=== PATIENT | male | born 1955 | race Caucasian/White ===

== ENCOUNTER → 2023-05-28 17:15 | Outpatient (REF) | payer MEDICARE, SELFPAY | LOC: HWRAD 17:15 | PROVIDERS: ATTENDING PHYSICIAN Physician Assistant Medical | DX: R05.3 Chronic cough (principal) | CPT/HCPCS: 71046 ==

== ENCOUNTER → 2023-07-26 07:35 | Outpatient (REF) | payer MEDICARE, SELFPAY | LOC: RSP 07:35 | PROVIDERS: ATTENDING PHYSICIAN Physician Assistant Medical | DX: R05.3 Chronic cough (principal) | CPT/HCPCS: 94727; 94729; 88738; 94010 ==

== ENCOUNTER → 2023-11-21 06:36 | Day surgery (SDC) | payer MEDICARE, SELFPAY | LOC: GI 06:36 | PROVIDERS: ATTENDING PHYSICIAN Internal Medicine Gastroenterology | DX: D50.9 Iron deficiency anemia, unspecified (principal); K64.8 Other hemorrhoids; K29.70 Gastritis, unspecified, without bleeding; K22.2 Esophageal obstruction; K44.9 Diaphragmatic hernia without obstruction or gangrene; K31.89 Other diseases of stomach and duodenum | CPT/HCPCS: 45378; 70220; 88305; 88342 ==

== ENCOUNTER 2024-02-17 09:59 | Inpatient (IN) | payer MEDICARE, SELFPAY ==
[2024-02-17] VITALS (18 sets, daily range): BP systolic 95–170; BP diastolic 60–137; BMI 30.6
[2024-02-17 08:25] LABS: % Basophils 0.9 % (0-2); % Eosinophils 1.6 % (0-6); % Immature Granulocytes 0.4 % (0-0.5); % Lymphocytes 12.2 % (20.5-51.1); % Monocytes 8.9 % (1.7-9.3); Absolute Basophils 0.1 10^3/uL (0-0.2); Absolute Eosinophils 0.2 10^3/uL (0-0.7); Absolute Lymphocytes 1.3 10^3/uL (1.2-3.4); Absolute Neutrophils 8.3 10^3/uL (1.4-6.5); Hematocrit 47.9 % (39.0-52.0); Mean Corp Hgb Conc. 35.5 g/dL (33.0-37.0); Mean Corpuscular Hgb 30.6 pg (27.0-31.0); Mean Corpuscular Volume 86.3 fL (80.0-94.0); Mean Platelet Volume 9.3 fL (7.4-10.4); Nucleated Red Blood Cells % 0 % (-); Platelet Count 245 10^3/uL (130-400); Red Blood Cell Count 5.55 10^6/uL (4.70-6.10); White Blood Cell Count 10.9 10^3/uL (4.8-10.8)
[2024-02-17] MEDS: CARDIZEM 10 MG IV (08:34)
--- NOTE | 2024-02-17 08:34 | ED.GENMED ---
History of Present Illness
General
Chief Complaint: Chest Pain
Source: patient
Exam Limitations: none
Time Seen by Provider: 02/17/24 08:16
Nursing documentation reviewed up to this point in time: agreed with
History of Present Illness
History of Present Illness:
68-year-old male presents emerged from complaining of right arm pain mild chest discomfort. He woke up with sweats.
Past History
Past History
ED Past Medical History: Hypercholesterolemia
ED Past Surgical History: Cholecystectomy
Patient has exhibited threatening behavior?: No
PSI?: No
Social History
Personal:
Living: with family
Employment: Employed
Review of Systems
Review of Systems
Allergies reviewed?: Yes
All Other Systems: Not applicable
Constitutional: Reports no symptoms
EENT: Reports no symptoms
Respiratory: Reports no symptoms
Cardiac: Reports chest pain and palpitations
ABD/GI: Reports no symptoms
: Reports no symptoms
Musculoskeletal: Reports no symptoms
Skin: Reports no symptoms
Neurological: Reports no symptoms
Endocrine: Reports no symptoms
Hematologic/Lymphatic: Reports no symptoms
Psychiatric: Reports no symptoms
Phy Exam
Physical Exam
Physical Exam:
Physical Exam
General: no apparent distress, not acutely ill
Neck: supple. no meningeal signs. normal posterior pharynx
Heart: s1/s2 tachycardia, no murmur. equal radial
pulses.
HEENT: Pupils equal round reactive to light, EOMI
Lungs: no acute respiratory distress. clear bilaterally
Abdomen: normal bowel sounds. not tender. no CVAT
Neuro: alert and oriented. no focal neurological deficits cranial nerves II through XII intact
Skin: no rash
Psychiatric: well kept. interactive and cooperative
Extremities: no edema. no calf tenderness. negative homans. good distal pulses
Scores
Heart Score for Chest Pain Patients
STEMI patient?: No
History: Slightly or Non-Suspicious
ECG: Nonspecific Repolarization
Age: >/= 65 years
Risk Factors: 1 or 2 Risk Factors
Troponin: >1 - <3 x Normal Limit
Heart Score for Chest Pain Patients: 5
Heart Score Risk: 20.3% MACE over next 6 weeks
Course
Orders/Labs/Results
Orders:
Orders
02/17/24 07:58
EKG [Electrocardiogram (*1)] Urgent
Reason for Study: Chest Pain
EKG- Treatment ONCE
02/17/24 08:16
CMP [Comprehensive Metabolic Panel] Urgent
Complete Blood Count/With Diff Urgent
PT/INR [Prothrombin Time] Urgent
PTT Urgent
Troponin I Urgent
02/17/24 08:28
Diltiazem 125 mg/125 ml Nss [Cardizem] 125 mg in 125 ml .ROUTE .STK-MED
Diltiazem HCl [Cardizem] 25 mg .ROUTE .STK-MED ONE
02/17/24 08:32
Diltiazem HCl [Cardizem] 10 mg IV NOW STA
02/17/24 08:45
Diltiazem 125 mg/125 ml Nss [Cardizem] 125 mg in 125 ml IV PER PROTOCOL
Initial dose in mg/hr, then titrate:: 5
Titrate to keep:: Heart rate 80-100 bpm
Titrate by mg/hr:: 5 mg/hr
Frequency of titrations (minutes):: 15
Maximum dose in mg/hr:: 15
02/17/24 09:13
0.9% Sodium Chloride 1000 ml [Nss] 1,000 ml IV BOLUS
02/17/24 09:27
Heparin 4,000 units IV NOW STA
Nursing to Place Non Medication Order As Directed
Physician Order: PTT 6 hours after initial start of Heparin infusion
Above order entered?: Yes
02/17/24 09:32
Admit/Transfer Patient As Directed
Co-Sign Provider:
Level of Care: Inpatient admission
Assign to:: IVU
Physician / Group: Dr Garcia
Diagnosis: A-fib RVR
Reason for Hospitalization: Patient is 68 years old male presented with chest pain and A-fib RVR
Expected length of stay greater than two midnights?: Yes
ELOS- Estimated Length of Stay in days: 2
I certify the patient meets the requirements for IP care: Yes
02/17/24 09:35
PRN Pain Medication Management As Directed
May give lesser potent ordered pain med per pt: Yes
preference::
Protocol:: Medication orders for pain may be administered in a
manner that supports deferring to patient preference
when the pt is:
- Requesting an ordered lesser potent pain medication.
Least to most potent pain medications are defined
as: acetaminophen < NSAID < tramadol < opioids
(morphine, oxycodone, hydromorphone).
- Requesting a lesser dose of the same medication IF
ORDERED.
- Requesting a less intrusive route of administration
if both routes are prescribed by the provider (PO <
IV).
02/17/24 09:36
Code Status As Directed
Resuscitation Status: Full Code
02/17/24 09:45
Heparin 33551 Units/250 ml 25,000 units in 250 ml IV PER PROTOCOL
Weight to be used for heparin protocol in kilograms (kg):: 114
Protocol:: Cardiac Tx/Acute Coronary
PTT Goal Range to be used:: PTT 73 to 111 seconds
Order type:: Initial
INITIAL Infusion Dose (UNITS/KG/hr) & then follow protocol:: 12 units/kg/hr
Infusion Dose in UNITS/hr & then follow protocol (UNITS/hr):: 1,000
INFUSION RATE in mL/hr & then follow protocol (mL/hr):: 10
PTT less than or equal to 64 seconds:: Increase rate by 200 units/hr (+ 2 mL/hr)
PTT 64.1 to 72.9 seconds:: Increase rate by 100 units/hr (+ 1 mL/hr)
PTT 73 to 111 seconds:: Target Range. No change in rate.
PTT 111.1 to 130.9 seconds:: Decrease rate by 100 units/hr (- 1 mL/hr)
PTT 131 to 199.9 seconds:: HOLD for 1 hr. Then decrease rate by 200 units/hr (- 2 mL/hr)
PTT greater than or equal to 200 seconds:: HOLD for 2 hrs & Notify Provider. Then decrease by 200 units/hr (-
2 mL/hr)
Lab follow-up:: Each change, PTT q6h until 2 consecutive are therapeutic. Then PTT
daily.
02/17/24 11:40
Bisacodyl [Dulcolax] 10 mg RECTAL [id number] PRN
Docusate W/Senna [Senokot-S] 1 tablet PO BIDPRN PRN
Polyethylene Glycol Powder [Miralax] 17 grams PO DAILYPRN PRN
02/17/24 11:40
Heparin Protocol- PTT Orders As Directed
PTT per Heparin protocol: -Obtain CBC and baseline PTT - if not already collected.
-Obtain PTT 6 hours from start of infusion. Then, every 6 hours until 2 consecutive
PTT's are therapeutic. Then, PTT Daily.
-With each rate change, obtain PTT every 6 hours until 2 consecutive PTT's are
therapeutic. Then, PTT Daily.
Activity As Directed
Activity Level: Out of Bed-Early Mobility
Notify MD As Directed
Notify physician if: PTT is greater than or equal to 200.
Vital Signs As Directed
Frequency: Per unit guidelines
02/17/24 14:00
Troponin I Q6H
02/17/24 20:00
Troponin I Q6H
02/18/24 06:00
Basic Metabolic Panel IN AM
Complete Blood Count/No Diff IN AM
Magnesium IN AM
TSH Reflex To Free T4 IN AM
02/19/24 06:00
Complete Blood Count/No Diff Q2D
Comment: notify provider: Platelet count < 130,000 or decrease by 50% from baseline
02/21/24 06:00
Complete Blood Count/No Diff Q2D
Comment: notify provider: Platelet count < 130,000 or decrease by 50% from baseline
02/23/24 06:00
Complete Blood Count/No Diff Q2D
Comment: notify provider: Platelet count < 130,000 or decrease by 50% from baseline
02/25/24 06:00
Complete Blood Count/No Diff Q2D
Comment: notify provider: Platelet count < 130,000 or decrease by 50% from baseline
02/27/24 06:00
Complete Blood Count/No Diff Q2D
Comment: notify provider: Platelet count < 130,000 or decrease by 50% from baseline
02/29/24 06:00
Complete Blood Count/No Diff Q2D
Comment: notify provider: Platelet count < 130,000 or decrease by 50% from baseline
03/02/24 06:00
Complete Blood Count/No Diff Q2D
Comment: notify provider: Platelet count < 130,000 or decrease by 50% from baseline
03/04/24 06:00
Complete Blood Count/No Diff Q2D
Comment: notify provider: Platelet count < 130,000 or decrease by 50% from baseline
Abnormal Lab Results
02/17/24
08:16
WBC 10.9 H 10^3/uL
(4.8-10.8)
Absolute Neuts (auto) 8.3 H 10^3/uL
(1.4-6.5)
Absolute Monos (auto) 1.0 H 10^3/uL
(0.1-0.6)
Neutrophils % 76.0 H %
(42.2-75.2)
Lymphocytes % 12.2 L %
(20.5-51.1)
Glucose 121 H mg/dl
(70-99)
02/17/24 08:16
02/17/24 08:16
Vital Signs
Initial and Last Documented VS:
Initial Vital Signs
Temp Pulse Resp Pulse Ox
97.5 F 68 16 98
02/17/24 07:57 02/17/24 07:57 02/17/24 07:57 02/17/24 07:57
Last Documented Vital Signs
Temp Pulse Resp BP Pulse Ox
97.8 F 140 16 130/106 96
02/17/24 12:25 02/17/24 12:25 02/17/24 12:25 02/17/24 11:38 02/17/24 12:30
MDM/Problems Addressed
Differential Diagnosis Includes:
ACS, rapid atrial fibrillation
MDM/Problems Addressed:
68-year-old male with rapid atrial fibrillation, new onset. Unclear onset. Mild improvement with IV diltiazem. Admit to hospitalist. Patient will likely require ELIZABETH and cardioversion. IV heparin started.
Chronic conditions affecting care: HTN
Acute Exacerbation and/or Progression of Chronic Illness: HTN
*Pulse Oximetry
Patient hypoxic: no
*EKG
Interpreted by ED Provider?: Yes
EKG Intrepretation Date: 02/17/24
EKG Intrepretation Time: 08:01
Interpretation: abnormal
Comparison EKG: changes noted
Heart Rate: 183
Rate: tachycardiac
Rhythm: a-fib
[place]: normal axis
Interval: normal interval
QRS Pattern: right bundle branch block
Ischemia: no ischemia
*[place] Interpretation
Rate: tachycardiac
Interpretation: abnormal
Heart Rate: 180
Rhythm: a-fib
*Critical Care Note
Total Time (30-74mins, 75-104mins- exclusive of procedures): 30
comment:
Critical care statement: A total of 30 minutes of critical care time was provided for this patient. This includes management of unstable vital signs, evaluation of the patient at bedside, reviewing the patient's pertinent medical records, discussion
with consultants, review of old EKGs and review of pertinent medical records. This time with separate from time utilized to perform the aforementioned documented procedures
Patient Management
Social determinants of health affecting care: Living situation
Discussion with other providers: Hospitalist
Escalation/DeEscalation of care consider admission/obs:
Admit indicated
ED Attending Note
-
Portions of this chart may have been created with voice recognition software.� Occasional wrong word or��sound alike� substitutions may have occurred due to the inherent limitations of voice recognition software.
Discharge Plan
Departure
Patient Disposition: Admit
Date of Disposition: 02/17/24
Time of Disposition: 09:16
Admit to: IVU
Presentation/result/management discussed w/ accepting MD/DO: Hospitalist
Patient with high blood pressure during this ER visit?: Yes
Condition: Fair
Discharge Problem:
Atrial fibrillation with rapid ventricular response
Interventions
Interventions:
*Risk Screen - Suicide Last Done: 02/17/24 12:03
*General Assessment Last Done: 02/17/24 07:57
*Neglect/Abuse Screening Last Done: 02/17/24 07:57
ED- Fall Risk Assessment Last Done: 02/17/24 08:05
*ED COVID-19 Vaccine History Last Done: 02/17/24 11:55
*Nursing Disposition Last Done: 02/17/24 11:44
ED- Cardiac Assessment Last Done: 02/17/24 08:05
Discharge Date and Time
Discharge Date/Time: 02/17/24 11:44
[2024-02-17 08:35] LABS: INR 1.05; PT 13.5 Sec (11.4-14.6)
[2024-02-17] MEDS: CARDIZEM 125 IV ×2 (08:35→16:32)
[2024-02-17 08:36] LABS: APTT 31.6 Sec (23.4-35.0)
[2024-02-17 08:39] LABS: ALT (SGPT) 25 U/L (0-50); AST (SGOT) 26 U/L (17-59); Albumin 4.6 g/dl (3.5-5.0); Alkaline Phosphatase 90 U/L (38-126); Blood Urea Nitrogen 18 mg/dl (9-20); Carbon Dioxide 26 mmol/L (22-30); Chloride 103 mmol/L (98-107); Estimated Creatinine Clearance 95 ml/min; Glucose 121 mg/dl (70-99); Potassium 4.2 mmol/L (3.5-5.1); Sodium 142 mmol/L (135-145); Total Bilirubin 0.8 mg/dl (0.2-1.3); Total Protein 7.7 g/dl (6.3-8.2); eGFR > 60.00
[2024-02-17 08:52] LABS: Troponin I 0.033 ng/ml
[2024-02-17] MEDS: NSS 1000 IV (09:17)
[2024-02-17] MEDS: HEPARIN 4000 UNITS IV (09:34)
--- NOTE | 2024-02-17 09:38 | HPS.HSE ---
Family Physician
-
Family Physician: Pardeep Arellano
Chief Complaint
-
Chest pain
History of Present Illness
Patient 68 years old male history of hypertension, hyperlipidemia, presented to the hospital with chest pain and found to be in new onset atrial fibrillation rapid ventricular response. Patient woke up this around 5 AM and felt that he had some
chest discomfort associated radiated to his right arm, mild to moderate intensity, associated with some dizziness. Denies palpitation shortness of breath or syncope. Symptoms persisted throughout the morning and decided to come to the hospital for
further evaluation. Denies any fevers or chills. Denies any nausea vomiting or diarrhea recently. In the ED he was found to be in A-fib in the 160s and he was started on Cardizem drip and heparin drip and by the time of my evaluation he is still
persisted in A-fib in the 150s and blood pressure borderline low 98/70. He is chest pain-free by the time of my evaluation. He does have some abnormal EKG with A-fib and ST depressions. His troponin is normal first set. He was referred to
hospital service for evaluation.
Medical History
Past Medical History
Past Medical History: Reports Other (Hypertension, hyperlipidemia)
Past Surgical History: Reports None
Social History
Tobacco: Non-smoker
Alcohol: None
Drug: None
Family History
Family History: Not pertinent
Allergies / Home Medications
Allergies reflects when Allergies were last updated in [facility].
Home Medications with original date entered in [facility]
Allergy/Medication List:
Allergies
Allergy/AdvReac Type Severity Reaction Status Date / Time
Penicillins Allergy Hives Verified 02/17/24 07:56
Home Medications
atorvastatin 20 mg tablet 20 mg PO DAILY 05/06/19
multivitamin with folic acid 400 mcg tablet (Tab-A-Mey) 1 tab PO DAILY 05/06/19
Review of Systems
-
A 12 point ROS was completed and negative except as noted: Yes
Physical Exam
Vital Signs
Vital Signs
Temp Pulse Resp BP Pulse Ox
97.5 F 137 14 113/83 96
02/17/24 07:57 02/17/24 09:15 02/17/24 09:15 02/17/24 09:15 02/17/24 09:15
Physical exam:
General: Acutely ill
HEENT: Normocephalic, Atraumatic and Moist Mucous Membranes
Respiratory: Clear to Auscultation; Negative Wheezes, Rales or Rhonchi
Cardiac: Irregular rate and rhythm, tachycardic, and S1/S2
GI: Soft, Nontender and Nondistended
Musculoskeletal: No Clubbing, No Cyanosis and No Edema
Neuro: Awake, Alert and Oriented
Psych: Calm
Physical Exam
General: Other
Laboratory Results
-
02/17/24 08:16
02/17/24 08:16
Laboratory Results
PT 13.5 Sec (11.4-14.6) 02/17/24 08:16
INR 1.05 02/17/24 08:16
APTT 31.6 Sec (23.4-35.0) 02/17/24 08:16
Total Bilirubin 0.8 mg/dl (0.2-1.3) 02/17/24 08:16
AST 26 U/L (17-59) 02/17/24 08:16
ALT 25 U/L (0-50) 02/17/24 08:16
Alkaline Phosphatase 90 U/L (38-126) 02/17/24 08:16
Troponin I 0.033 ng/ml 02/17/24 08:16
Data Reviewed
-
Lab Data: Labs Reviewed by me
Impression/Plan
-
IMPRESSION:
Patient is 68 years old male with history of hyperlipidemia and iron deficiency anemia came into the hospital with chest pain and found to be an A-fib rapid ventricular response, new onset. Patient at risk of increased morbidity mortality due to
unstable cardiac arrhythmia thereby will need to be admitted to the hospital and monitor for progress and management.
PLAN:
Atrial fibrillation with rapid ventricular response, new onset:
Continue rate control agents, currently on IV Cardizem drip
Continue anticoagulation, currently on heparin drip
Check TSH
Obtain echocardiogram
Cardiology consult-discussed with cardiology via [place] text today-likely cardioversion tomorrow
Continue cardiac monitoring
Chest pain:
Likely related to above but need to rule out ischemic heart disease
There is ST depressions in lateral precordial leads V2 to V4 but unclear if tachycardia mediated or ischemia related
First set of cardiac troponin is normal but will continue to trend
Will also obtain an echocardiogram
Hypertension:
Hold on palma inh while on Cardizem drip and relatively hypotensive
Monitor BP closely
Hyperlipidemia:
Cont Crestor 5 mg QHS
Check fasting lipids in am
DVT prophylaxis:
Heparin drip
CODE STATUS
Full code
Time spent 75 minutes
[2024-02-17] MEDS: HEPARIN 25000 UNITS/250 ML IV (09:42)
--- NOTE | 2024-02-17 12:38 | PTCARENOTE ---
Assumed care of pt from ED, handoff done as per protocol. Pt arrives awake and alert, Ox3. CM shows AF 130-16's, Cardizem inf through right wrist at 15 mg/hr, Heparin infusing along with Cardizem at 1000 u/hr. He denies any pain or discomfort,
family at bedside. Plan for ELIZABEHT, CV tomorrow.
--- NOTE | 2024-02-17 12:41 | W.PN.CD ---
Addendum entered and electronically signed by Enrrique Trejo MD 02/17/24 16:42:
Consult has been dictated. Below is a summary.
Original Note:
Today's Communication / Plan
-
Trend trop
Check TSH
Anticipate early ELIZABETH/DCCV (02/18/2024)
Impression / Plan
-
New AFib RVR
- [id number] 2 (HTN/age1)
- Early ELIZABETH/DCCV
- Start Eliquis
- All aspects of AFib reviewed including: risk factor modification, stroke risk reduction, bleeding risks of OAT/signs sx of bleeding, recurrence, rate/rhythm control approaches, need to evaluate for structural heart disaeaes, and availability of
early or later ablation
Associated right arm pain
- R/o GA
- Anticipate outpatient stress test
HTN
Mixed hyperlipidemia
Physical Exam
Vital Signs/Labs
Vital Signs
Temp Pulse Resp BP Pulse Ox
97.8 F 140 16 130/106 96
02/17/24 12:25 02/17/24 12:25 02/17/24 12:25 02/17/24 11:38 02/17/24 12:30
02/16/24 02/17/24 02/18/24
06:59 06:59 06:59
Actual Weight 114 kg
02/17/24 08:16
02/17/24 08:16
PT 13.5 Sec (11.4-14.6) 02/17/24 08:16
INR 1.05 02/17/24 08:16
APTT 31.6 Sec (23.4-35.0) 02/17/24 08:16
LAB Results
02/17/24
08:16
Troponin I 0.033
Data Reviewed
-
Date of Service: February 17, 2024
[2024-02-17 16:03] LABS: APTT 47.5 Sec (23.4-35.0)
[2024-02-17 17:33] LABS: HDL Cholesterol 44 mg/dl; LDL Cholesterol, Calculated 66 mg/dl; Lipase 70 U/L (23-300); Total Cholesterol 171 mg/dl (50-199); Triglyceride 305 mg/dl (10-149); Very Low Density Lipoprotein 61 mg/dl (0-30)
[2024-02-17] MEDS: LOPRESSOR 25 MG PO (17:50)
[2024-02-17] MEDS: CRESTOR 5 MG PO (17:50)
[2024-02-17 18:17] LABS: TSH Reflex To Free T4 2.36 uIU/ml (0.47-4.68)
[2024-02-17 22:43] LABS: APTT 58.6 Sec (23.4-35.0)
[2024-02-17] MEDS: LOPRESSOR 50 MG PO (23:39)
[2024-02-18] VITALS (16 sets, daily range): BP systolic 108–136; BP diastolic 59–88; BMI 29.9
[2024-02-18] MEDS: CARDIZEM 125 IV (01:17)
--- NOTE | 2024-02-18 02:47 | PTCARENOTE ---
Rec'd pt at change of shift. Pt on TELE monitor in AFIB with HR in the 90-100's, VSS, and AAO*3. Pt with Cardizem infusing at 15mg/hr. Pt kept NPO after midnight for possible cardioversion and ELIZABETH in the morning. Pt oriented to room and
ambulates without any assistance. Pt denies any pain or discomfort. Pt resting with call hagan in reach. Plan of care ongoing.
[2024-02-18 05:24] LABS: Hematocrit 41.7 % (39.0-52.0); Hemoglobin 15.1 g/dL (13.0-18.0); Mean Corp Hgb Conc. 36.2 g/dL (33.0-37.0); Mean Corpuscular Hgb 31.2 pg (27.0-31.0); Mean Corpuscular Volume 86.2 fL (80.0-94.0); Mean Platelet Volume 9.7 fL (7.4-10.4); Platelet Count 220 10^3/uL (130-400); Red Blood Cell Count 4.84 10^6/uL (4.70-6.10); Red Cell Dist. Width 13.5 % (11.5-14.5); White Blood Cell Count 10.2 10^3/uL (4.8-10.8)
[2024-02-18 05:36] LABS: APTT 83.1 Sec (23.4-35.0)
[2024-02-18 05:53] LABS: Blood Urea Nitrogen 22 mg/dl (9-20); Calcium 9.4 mg/dl (8.4-10.2); Carbon Dioxide 19 mmol/L (22-30); Chloride 109 mmol/L (98-107); Estimated Creatinine Clearance 95 ml/min; Glucose 111 mg/dl (70-99); HDL Cholesterol 43 mg/dl; LDL Cholesterol, Calculated 57 mg/dl; Magnesium 2.2 mg/dl (1.6-2.3); Potassium 4.3 mmol/L (3.5-5.1); Sodium 139 mmol/L (135-145); Total Cholesterol 125 mg/dl (50-199); Triglyceride 126 mg/dl (10-149); Very Low Density Lipoprotein 25 mg/dl (0-30); eGFR > 60.00
[2024-02-18] MEDS: HEPARIN 25000 UNITS/250 ML IV (06:14)
[2024-02-18] MEDS: LOPRESSOR 50 MG PO ×4 (06:14→23:16)
--- NOTE | 2024-02-18 07:17 | W.PN.HOSP.TC ---
Today's Communication/Plan
-
c/w heparin and Cardizem
R/O ischemic heart disease, f/w cardiology recommendations
Add aspirin
f/w Echo
Assessment / Plan
Assessment / Plan
Physical exam:
General: Not in distress, looks comfortable
HEENT: Normocephalic, Atraumatic and Moist Mucous Membranes
Respiratory: Clear to Auscultation; Negative Wheezes, Rales or Rhonchi
Cardiac: Irregular rate and rhythm, less tachycardic, and S1/S2
GI: Soft, Nontender and Nondistended
Musculoskeletal: No Clubbing, No Cyanosis and No Edema
Neuro: Awake, Alert and Oriented, he followed commands appropriately.
Psych: Calm
Patient is 68 years old male with history of hyperlipidemia and iron deficiency anemia came into the hospital with chest pain and found to be an A-fib rapid ventricular response, new onset. Patient at risk of increased morbidity mortality due to
unstable cardiac arrhythmia thereby will need to be admitted to the hospital and monitor for progress and management.
PLAN:
# Newly diagnosed Atrial fibrillation with rapid ventricular response:
HR around 100-110 this morning, denies current chest pain or palpitations.
Continue rate control agents, currently on IV Cardizem drip
Continue anticoagulation, currently on heparin drip, [id number] around 2
Normal TSH
Obtain echocardiogram
Appreciate cardiology input
# History of chest pain/ pressure, positive troponin peak at 2.020 then came down to 1.600
Suspect NSTEMI
No chest pain this morning, c/w IV Heparin gtt
Add aspirin
Work up to rule out obstructive coronary artery disease.
EKG ST changes.
F/W echo findings , will follow
# Essential Hypertension:
Hold on palma inh while on Cardizem drip and relatively hypotensive
Monitor BP closely
# Hyperlipidemia:
Cont Crestor 5 mg QHS
Check fasting lipids in am
#DVT prophylaxis:
Heparin drip
CODE STATUS
Full code
Total time spent to see the patient, examine the patient on the floor, review data and lab results, discuss treatment plan with patient and nursing staff around 55 minutes
Anticipated Discharge: 24 - 48 hours
Subjective/Interval History
-
Date of Service: February 18, 2024
Objective Data
-
Labs:
Laboratory Results
02/17/24 02/18/24 02/18/24
22:18 05:11 12:00
WBC 10.2
Hgb 15.1
Hct 41.7
Plt Count 220
APTT 58.6 H 83.1 H Pending
Sodium 139
Potassium 4.3
Chloride 109 H
Carbon Dioxide 19 L
BUN 22 H
Creatinine 1.0
Glucose 111 H
Calcium 9.4
Vital Signs:
Vital Signs
Temp Pulse Resp BP Pulse Ox
98.3 F 105 16 116/59 93
02/18/24 03:00 02/18/24 06:14 02/18/24 03:00 02/18/24 06:14 02/18/24 03:00
I&O
02/17/24 02/18/24 02/19/24
06:59 06:59 06:59
Intake Total 465 / 465
Output Total 850 / 850
Balance -385 / -385
[2024-02-18] MEDS: ASPIRIN ENTERIC COATED 325 MG PO (08:29)
--- NOTE | 2024-02-18 09:49 | W.PN.CD ---
Today's Communication / Plan
-
Cath
- If PCI or need for CABG => delay ELIZABETH/DCCV
- If no CAD or med Rx CAD then => ELIZABETH/DCCV today
Impression / Plan
-
Myocardial infarction
- Trop peak at 2
- First symptom right arm tightness with palps
- This is either Type II DE from rapid AFIb or NSTEMI with secondary AFib RVR => proceed to cath / possible PCI to determine
- Add ASA
New AFib RVR
- [id number] 2 (HTN/age1)
- Early ELIZABETH/DCCV
- TSH normal
- Start Eliquis after coronary status determined
- All aspects of AFib reviewed yesterday: including: risk factor modification, stroke risk reduction, bleeding risks of OAT/signs sx of bleeding, recurrence, rate/rhythm control approaches, need to evaluate for structural heart disease, and
availability of early or later ablation
Associated right arm pain
- R/o [place]
- Anticipate outpatient stress test
HTN
Mixed hyperlipidemia => lipids well controlled on statin
Subjective: Feels well
Physical Exam
Vital Signs/Labs
Vital Signs
Temp Pulse Resp BP Pulse Ox
98.3 F 90 18 112/74 93
02/18/24 08:30 02/18/24 09:00 02/18/24 08:30 02/18/24 08:27 02/18/24 03:00
02/17/24 02/18/24 02/19/24
06:59 06:59 06:59
Actual Weight 111.4 kg
02/18/24 05:11
02/18/24 05:11
PT 13.5 Sec (11.4-14.6) 02/17/24 08:16
INR 1.05 02/17/24 08:16
APTT 83.1 Sec (23.4-35.0) H 02/18/24 05:11
Magnesium 2.2 mg/dl (1.6-2.3) 02/18/24 05:11
Triglycerides 126 mg/dl (10-149) 02/18/24 05:11
LDL Cholesterol, Calc 57 mg/dl 02/18/24 05:11
VLDL Cholesterol, Calc 25 mg/dl (0-30) 02/18/24 05:11
HDL Cholesterol 43 mg/dl 02/18/24 05:11
LAB Results
02/17/24 02/17/24 02/17/24
08:16 15:41 22:18
Troponin I 0.033 0.960 H* D 2.020 H* D
02/18/24
05:11
Troponin I 1.600 H*
Physical Exam
Constitutional: No acute distress
EENT: Anicteric
Cardiovascular: Rhythm & rate is regular and Pedal edema is absent
Respiratory: Respiratory effort normal and Lungs clear to auscul.
GI: Soft and Distention absent
Neuro/Psych: AO x 3
Data Reviewed
-
Date of Service: February 18, 2024
--- NOTE | 2024-02-18 10:24 | ITS.CL.CATH ---
[employer] Manager - Catheterization
Cardiac Catheterization
Procedure Report:
CARDIAC CATHETERIZATION REPORT
Date of Procedure: 02/18/2024
Referring: Enrrique Trejo M.D.
INDICATION: Troponin elevation, possible non-ST elevation myocardial infarction.
PROCEDURE:
1. Left heart catheterization.
2. Coronary angiography.
ACCESS:
6 [place]ron[place] right radial artery.
CATHETERS:
1. 5 [place] JR4.
2. 5 [place] JL 3.5.
HEMODYNAMIC DATA
Weight (kg): 111.1
AO (s/d/x, mmHg): 99/62/78
LV (s/x mmHg): 99/17
LEFT VENTRICULOGRAPHY: Not performed.
CORONARY ANGIOGRAPHY
Dominance: Right.
Left Main: Normal size, bifurcating vessel. There is no coronary artery disease.
LAD: Large size vessel giving rise to 3 diagonals before wrapping around the apex and supplying the apical lateral wall. 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
Ramus: Congenitally absent.
Circumflex: Large size, nondominant vessel giving rise to 3 obtuse marginals. Obtuse marginal 1 and 2 arise from a common origin and supplies the majority of the lateral wall. Obtuse marginal 3 supplies the majority of the inferolateral wall.
There is no coronary artery disease.
RCA: Normal size, dominant vessel. There is a 20% lesion in the mid vessel.
INTERVENTION(S)
None.
Closure Device: Vascular band.
Radiation (mGy): 619.6
DAP (cm2.Gy): 37.2869
Fluoroscopy time (minutes): 2.3
Sedation time (minutes): 31
CONCLUSIONS
1. 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
2. Mildly elevated filling pressures (LVEDP = 17 mmHg at 111.1 kg).
3. Paroxysmal atrial fibrillation, spontaneously converted at the time of cardiac catheterization.
RECOMMENDATIONS:
1. Expectant management after cardiac catheterization via right radial approach.
2. Limited weight bearing on the right wrist for one week.
3. Continue aggressive primary prevention with high-dose, high potency statin.
4. Change antihypertensive medications to ones that will also control rate should he lapsed back into atrial fibrillation.
5. The patient may start apixaban this evening.
Copy to: Enrrique Trejo M.D., Pardeep Arellano D.O.
[place] DO, FACC, FACP
[2024-02-18] MEDS: NSS 1000 IV (11:05)
--- NOTE | 2024-02-18 11:50 | PTCARENOTE ---
Received pt from manager cardiac cath w/ IVF's at [facility]. Right radial site w/ R band intact with 8 ml of air in the band. VSS. Pt converted to NSR in the manager cardiac cath. Pt remains in NSR. Orders noted. Will monitor.
--- NOTE | 2024-02-18 13:39 | CM ---
CM following for DC planning needs.
Met w/ patient and spouse at bedside to complete initial assessment.
Pt. resides with spouse in a private, [facility]. Functionally, patient is indep. at baseline w/ ADLs, mobility without the use of any assisted device.
Pt. has Rx plan thru [facility] [employer] and uses [facility] in [place] for prescription needs.
Anticipate DC to home once stable, no needs.
CM to follow.
--- NOTE | 2024-02-18 13:52 | CM ---
Perry Rodríguez thru patient's insurance, [employer] [phone].
Pt. has an annual deductible of $280 to meet. He has already bet $47.37 and therefore has $232.63 left.
Once this is met, pt. will be responsible for 24% of cost of the medication. Cost of medication ranges from approx. $575-630; therefore cost of medication would likely be $130-150/mo.
TT to HUSSEIN to update.
[2024-02-18] MEDS: CRESTOR 5 MG PO (17:46)
[2024-02-18 19:33] LABS: Hepatitis C Antibody Negative (Negative)
[2024-02-18] MEDS: ELIQUIS 5 MG PO (21:06)
[2024-02-19 04:13] VITALS: BP 144/82
[2024-02-19 04:34] LABS: % Basophils 0.8 % (0-2); % Eosinophils 3.2 % (0-6); % Immature Granulocytes 0.2 % (0-0.5); % Lymphocytes 17.6 % (20.5-51.1); % Neutrophils 68.2 % (42.2-75.2); Absolute Basophils 0.1 10^3/uL (0-0.2); Absolute Eosinophils 0.3 10^3/uL (0-0.7); Absolute Lymphocytes 1.5 10^3/uL (1.2-3.4); Absolute Monocytes 0.9 10^3/uL (0.1-0.6); Absolute Neutrophils 5.8 10^3/uL (1.4-6.5); Hematocrit 41.8 % (39.0-52.0); Hemoglobin 14.8 g/dL (13.0-18.0); Mean Corp Hgb Conc. 35.4 g/dL (33.0-37.0); Mean Corpuscular Hgb 30.9 pg (27.0-31.0); Mean Corpuscular Volume 87.3 fL (80.0-94.0); Mean Platelet Volume 9.8 fL (7.4-10.4); Nucleated Red Blood Cells % 0 % (-); Platelet Count 189 10^3/uL (130-400); Red Blood Cell Count 4.79 10^6/uL (4.70-6.10); Red Cell Dist. Width 13.4 % (11.5-14.5); White Blood Cell Count 8.5 10^3/uL (4.8-10.8)
[2024-02-19 04:59] LABS: Blood Urea Nitrogen 18 mg/dl (9-20); Carbon Dioxide 21 mmol/L (22-30); Chloride 108 mmol/L (98-107); Estimated Creatinine Clearance 94 ml/min; Glucose 94 mg/dl (70-99); Potassium 4.2 mmol/L (3.5-5.1); Sodium 140 mmol/L (135-145); eGFR > 60.00
[2024-02-19] MEDS: LOPRESSOR 50 MG PO (05:31)
--- NOTE | 2024-02-19 06:42 | PTCARENOTE ---
Pt NSR on monitor. VSS. Pt denies any discomfort, pain or SOB. Safety measures in place .
--- NOTE | 2024-02-19 06:59 | W.PN.HOSP.TC ---
Today's Communication/Plan
-
DC planning
Assessment / Plan
Assessment / Plan
Physical exam:
General: Not in distress, looks comfortable
HEENT: Normocephalic, Atraumatic and Moist Mucous Membranes
Respiratory: Clear to Auscultation; Negative Wheezes, Rales or Rhonchi
Cardiac: Irregular rate and rhythm, less tachycardic, and S1/S2
GI: Soft, Nontender and Nondistended
Musculoskeletal: No Clubbing, No Cyanosis and No Edema
Neuro: Awake, Alert and Oriented, he followed commands appropriately.
Psych: Calm
Patient is 68 years old male with history of hyperlipidemia and iron deficiency anemia came into the hospital with chest pain and found to be an A-fib rapid ventricular response, new onset. Patient at risk of increased morbidity mortality due to
unstable cardiac arrhythmia thereby will need to be admitted to the hospital and monitor for progress and management.
PLAN:
# Newly diagnosed Atrial fibrillation with rapid ventricular response:
Converted to SR spontaneously
c/w high dose BB
Continue anticoagulation, s/p heparin drip, now on Eliquis, [id number] around 2
Normal TSH
Echo showed LVEF 55-60%. No wall motion abnormalities, no significant valvular heart disease.
Appreciate cardiology input
# History of chest pain/ pressure, positive troponin peak at 2.020 then came down to 1.600, likely related to tachycardia/ Type II AL
Ruled out NSTEMI
No chest pain
No obstructive coronary artery disease.
Appreciate cardiology input
# Essential Hypertension:
Well controlled.
# Hyperlipidemia:
Cont Crestor 5 mg QHS
#DVT prophylaxis:
Heparin drip
CODE STATUS
Full code
Total discharge time spent to see the patient, examine the patient on the floor, review data and lab results, discuss discharge plan with patient and nursing staff around 69 minutes
Anticipated Discharge: Today
Subjective/Interval History
-
Date of Service: February 19, 2024
No chest pain
No sob
No abd pain
Objective Data
-
Labs:
Laboratory Results
02/19/24
04:21
WBC 8.5
Hgb 14.8
Hct 41.8
Plt Count 189
Sodium 140
Potassium 4.2
Chloride 108 H
Carbon Dioxide 21 L
BUN 18
Creatinine 0.9
Glucose 94
Calcium 9.0
Vital Signs:
Vital Signs
Temp Pulse Resp BP Pulse Ox
97.8 F 72 16 144/82 95
02/19/24 04:12 02/19/24 05:31 02/19/24 04:12 02/19/24 05:31 02/19/24 04:13
I&O
02/17/24 02/18/24 02/19/24
06:59 06:59 06:59
Intake Total 465 / 465 1085 / 1085
Output Total 850 / 850
Balance -385 / -385 1085 / 1085
[2024-02-19 07:36] VITALS: BP 149/96
[2024-02-19] MEDS: LOW STRENGTH ASPIRIN 81 MG PO (08:09)
[2024-02-19] MEDS: ELIQUIS 5 MG PO (08:09)
--- NOTE | 2024-02-19 09:34 | W.PN.CD ---
Today's Communication / Plan
-
OK for home on current meds
Excellent candidate for ablation and he is aware
He will work on aFib risk factor modification
He may need to transition to warfarin or generic Pradaxa ([employer] coupon) for cost reasons
F/u arranged
Impression / Plan
-
Myocardial infarction
- Trop peak at 2
- First symptom right arm tightness with palps
- This was a Type II [place] from rapid AFib
- Add ASA
New Paroxysmal AFib RVR
- Now on metoprolol, will add prn propranolol
- [id number] 2 (HTN/age1)
- Converted spontaneously to sinus shortly after cardiac cath
- TSH normal
- On Eliquis after coronary status determined
- All aspects of AFib reviewed yesterday: including: risk factor modification, stroke risk reduction, bleeding risks of OAT/signs sx of bleeding, recurrence, rate/rhythm control approaches, need to evaluate for structural heart disease, and
availability of early or later ablation
HTN
Mixed hyperlipidemia => lipids well controlled on statin
Subjective: Feels well
Physical Exam
Vital Signs/Labs
Vital Signs
Temp Pulse Resp BP Pulse Ox
98.0 F 61 16 149/96 96
02/19/24 07:36 02/19/24 08:00 02/19/24 07:36 02/19/24 07:36 02/19/24 07:36
02/18/24 02/19/24 02/20/24
06:59 06:59 06:59
Actual Weight 111.4 kg
02/19/24 04:21
02/19/24 04:21
PT 13.5 Sec (11.4-14.6) 02/17/24 08:16
INR 1.05 02/17/24 08:16
APTT Cancelled 02/18/24 12:00
Magnesium 2.2 mg/dl (1.6-2.3) 02/18/24 05:11
Triglycerides 126 mg/dl (10-149) 02/18/24 05:11
LDL Cholesterol, Calc 57 mg/dl 02/18/24 05:11
VLDL Cholesterol, Calc 25 mg/dl (0-30) 02/18/24 05:11
HDL Cholesterol 43 mg/dl 02/18/24 05:11
LAB Results
02/17/24 02/17/24 02/17/24
08:16 15:41 22:18
Troponin I 0.033 0.960 H* D 2.020 H* D
02/18/24
05:11
Troponin I 1.600 H*
Physical Exam
Constitutional: No acute distress
EENT: Anicteric
Cardiovascular: Rhythm & rate is regular and Pedal edema is absent
Respiratory: Respiratory effort normal and Lungs clear to auscul.
GI: Soft and Distention absent
Neuro/Psych: AO x 3
Data Reviewed
-
Date of Service: February 19, 2024
[2024-02-19 11:24] VITALS: BP 150/91
--- NOTE | 2024-02-19 12:55 | PTCARENOTE ---
Assumed care of the pt @ 700. Cath site c/d/i Medication given as ordered see MAR. Rodríguez education pamphlet provided to patient. Discharge instructions provided to pt and verbalized understanding.
--- NOTE | 2024-02-19 14:41 | W.DCSUMMARY ---
Discharge Summary
Discharge Data
Date of Admission: 02/17/24
Date of Discharge: 02/19/24
-
Pending Results: No
Hospital Course
68 years old male presented with chest pain and dizziness. He was found to be in new onset atrial fibrillation rapid ventricular response. He was started on Cardizem drip and heparin drip. He had abnormal EKG with A-fib and ST depressions. His
troponin went slight up to peak at 2.02 then went down to 0.960. Cardiology evaluated the patient, he underwent left heart catheterization that showed 20% lesion in the mid RCA, myocardial bridge in the mid LAD. He spontaneously converted to sinus
rhythm. He was a placed on Eliquis and metoprolol. He tolerated medications well. Echocardiogram showed LVEF 55-60%. Patient was counseled regarding side effects of new medications and he verbalized understanding. He remained in sinus rhythm and
was discharged in a stable condition.
Discharge Plan
-
Patient Disposition: Home (Routine Discharge)
Discharge Diagnosis/Procedures: Type II Myocardial infarction status post Cardiac catheterization
Paroxysmal A fib, started on Toprol and Eliquis
Eliquis is a blood thinner, you were counseled
Diet: As tolerated
Stand Alone Forms: DC Instructions- Cath/EP Lab
Referrals:
Jacey Lim CRNP [Specified Professional Personl] - 03/17/24 9:20 am (Cardiology followup appointment)
Pardeep Arellano DO [Family Provider] -
Prescriptions:
New
metoprolol succinate 100 mg Tablet Extended Release 24 Hr
100 mg PO DAILY Qty: 30 0RF
propranolol 20 mg Tablet
20 mg PO Q6 PRN (Reason: AFib with RVR) Qty: 15 0RF
Eliquis 5 mg Tablet
5 mg PO BID Qty: 60 0RF
Continued
lisinopril 40 mg Tablet
40 mg PO DAILY
rosuvastatin [Crestor] 40 mg Tablet
40 mg PO DAILY
Discharge Orders:
Discharge Patient (As Directed); Ordered 02/19/24
Ordered By: Marge Hart
Care Plan Goals
Care Plan Goals:
Problem: Readiness for enhanced knowledge related to diagnosis and treatment plan
Goal: Understand your diagnosis and treatment plan needs, including medications if applicable.
Instructions: Know your diagnosis, underlying causes and treatment plan options, including medications if applicable. Consult with your health care team to learn about your diagnosis and treatment plan, including medications if applicable.
Discharge Date and Time
Discharge Date/Time: 02/19/24 12:59
Print Language: THAI
== END 2024-02-19 12:59 | disposition home or self-care (01) | DRG 282 ==
LOC: IVU 09:59
PROVIDERS: Internal Medicine Cardiovascular Disease; Nurse Practitioner; ADMITTING PHYSICIAN Hospitalist; ATTENDING PHYSICIAN Internal Medicine; CONSULT PHYSICIAN Internal Medicine Cardiovascular Disease; EMERGENCY PHYSICIAN Emergency Medicine; FAMILY PHYSICIAN Family Medicine
PROC: B2111ZZ Fluoroscopy of Multiple Coronary Arteries using Low Osmolar Contrast (ICD-10-PCS; 2024-02-18)
PROC: 4A023N7 Measurement of Cardiac Sampling and Pressure, Left Heart, Percutaneous Approach (ICD-10-PCS; 2024-02-18)
DX: I21.A1 Myocardial infarction type 2 (principal); I48.0 Paroxysmal atrial fibrillation; I10 Essential (primary) hypertension; E78.2 Mixed hyperlipidemia
CPT/HCPCS: 80048; 80053; 80061; 83690; 83735; 84443; 84484; 85025; 85027; 85610; 85730; 86803; 93005; 93306; 93458; 96361; 96374; 99291; C1894; Q9967

== ENCOUNTER 2024-04-28 23:14 | Emergency (ER) | payer MEDICARE, SELFPAY ==
[2024-04-28 23:43] LABS: % Basophils 0.8 % (0-2); % Eosinophils 2.4 % (0-6); % Immature Granulocytes 0.3 % (0-0.5); % Lymphocytes 20.8 % (20.5-51.1); % Monocytes 11.3 % (1.7-9.3); % Neutrophils 64.4 % (42.2-75.2); Absolute Basophils 0.1 10^3/uL (0-0.2); Absolute Eosinophils 0.2 10^3/uL (0-0.7); Absolute Lymphocytes 1.9 10^3/uL (1.2-3.4); Absolute Neutrophils 5.9 10^3/uL (1.4-6.5); Hematocrit 46.3 % (39.0-52.0); Hemoglobin 16.3 g/dL (13.0-18.0); Mean Corp Hgb Conc. 35.2 g/dL (33.0-37.0); Mean Corpuscular Hgb 31.1 pg (27.0-31.0); Mean Corpuscular Volume 88.4 fL (80.0-94.0); Mean Platelet Volume 9.6 fL (7.4-10.4); Nucleated Red Blood Cells % 0 % (-); Platelet Count 234 10^3/uL (130-400); Red Blood Cell Count 5.24 10^6/uL (4.70-6.10); Red Cell Dist. Width 13.3 % (11.5-14.5); White Blood Cell Count 9.1 10^3/uL (4.8-10.8)
[2024-04-28 23:58] LABS: ALT (SGPT) 22 U/L (0-50); AST (SGOT) 26 U/L (17-59); Albumin 4.3 g/dl (3.5-5.0); Alkaline Phosphatase 101 U/L (38-126); Blood Urea Nitrogen 14 mg/dl (9-20); Calcium 9.3 mg/dl (8.4-10.2); Carbon Dioxide 21 mmol/L (22-30); Chloride 105 mmol/L (98-107); Glucose 109 mg/dl (70-99); Potassium 4.4 mmol/L (3.5-5.1); Sodium 137 mmol/L (135-145); Total Bilirubin 0.5 mg/dl (0.2-1.3); Total Protein 7.2 g/dl (6.3-8.2); eGFR > 60.00
[2024-04-29] VITALS (28 sets, daily range): BP systolic 101–143; BP diastolic 62–94; BMI 30.1
[2024-04-29 00:05] LABS: Troponin I 0.016 ng/ml
[2024-04-29] MEDS: NSS 1000 IV (00:46)
[2024-04-29] MEDS: CARDIZEM 20 MG IV (00:46)
--- NOTE | 2024-04-29 00:55 | ED.GENMED ---
History of Present Illness
General
Chief Complaint: Heart Rate Problem
Time Seen by Provider: 04/29/24 00:23
History of Present Illness
History of Present Illness:
68-year-old male with no history of atrial fibrillation presenting to the emergency department for concern of atrial fibrillation. Patient reports earlier in the evening, felt some palpitations and checked his watch, noted to be in A-fib. Does
note that he was exerting himself a little bit today, shoveling the driveway. Denies any significant chest pain. Last time he was in A-fib was in January, placed on Eliquis and Toprol along. He did have a cardiac catheterization at that time,
without any significant stenosis. Patient went into sinus rhythm on his own. Notes some generalized weakness. Denies any difficulty breathing. Denies fever. Notes compliance with his anticoagulation. Denies additional acute medical complaint
Past History
Past History
ED Past Medical History: Hypercholesterolemia
ED Past Surgical History: Cholecystectomy
Patient has exhibited threatening behavior?: No
PSI?: No
Social History
Personal:
Living: with family
Employment: Employed
Phy Exam
Physical Exam
Physical Exam:
General: Well-appearing, no clinical signs of dehydration, nontoxic and in no acute distress
HEENT: protecting airway
Neck: appears supple
CV: Tachycardia with irregular regular rhythm, no evidence of cyanosis
Resp: No accessory muscle use, no increased work of breathing, lungs clear to auscultation bilaterally
Abd: No distention
Extremities: No deformities, no swelling, no erythema
Neuro: alert, no focal neurologic deficit
: deferred
Rectal: deferred
Psych: Normal affect
Skin: Intact
Course
Orders/Labs/Results
Orders:
Orders
04/28/24 23:14
ECG [Electrocardiogram (*1)] Urgent
Reason for Study: Atrial Fibrillation
04/28/24 23:15
EKG- Treatment ONCE
04/28/24 23:33
Complete Blood Count/With Diff Urgent
Comprehensive Metabolic Panel Urgent
Troponin I Urgent
04/29/24 00:39
Diltiazem HCl [Cardizem] 20 mg IV NOW STA
04/29/24 00:40
0.9% Sodium Chloride 1000 ml [Nss] 1,000 ml IV BOLUS
04/29/24 01:35
Metoprolol [Lopressor] 5 mg IV NOW STA
04/29/24 02:30
Propofol [Diprivan] 20 ml .ROUTE .STK-MED
04/29/24 02:45
Electrocardiogram (*1) Urgent
Reason for Study: Other
Other Reason for Exam: cardioversion
04/29/24 02:46
EKG- Treatment ONCE
Abnormal Lab Results
04/28/24
23:33
MCH 31.1 H pg
(27.0-31.0)
Absolute Monos (auto) 1.0 H 10^3/uL
(0.1-0.6)
Monocytes % 11.3 H %
(1.7-9.3)
Carbon Dioxide 21 L mmol/L
(22-30)
Glucose 109 H mg/dl
(70-99)
04/28/24 23:33
04/28/24 23:33
Vital Signs
Initial and Last Documented VS:
Initial Vital Signs
BP
127/89
04/29/24 00:22
Last Documented Vital Signs
Temp Pulse Resp BP Pulse Ox
98.0 F 162 18 105/78 97
04/29/24 02:42 04/29/24 02:42 04/29/24 02:42 04/29/24 02:42 04/29/24 02:42
Procedures
Cardioversion
Indication:: Afib
Performed by:: Eli Cote DO
Synchronized?: Yes
Energy Used: 200 joules
Number of attempts: 1
Successful?: Yes
Complications: none
ASA Risk Score: Class II
Any reaction or bad outcome to prior sedation/anesthesia?: No history of a reaction
Sedation level to be attained: moderate
Chart and allergies reviewed: Yes
Patient reassessed prior to sedation: Yes
Time out completed at (validating right patient & procedure): 02:42
History of difficult intubation: No
Airway free of obstruction: Yes
Patient has a gag reflex: Yes
Patient is able to open mouth: Yes
Patient has no dentures: Yes
Patient has no loose teeth: Yes
Medication administered by Provider during Moderate Sedation: IV Propofol (mg)
Total dose administered: 50
Time drug administered: 02:42
Start Time: 02:42
Stop Time: 02:57
MDM/Problems Addressed
MDM/Problems Addressed:
68-year-old male with known history of A-fib on Eliquis and metoprolol presenting for atrial fibrillation. Vital signs on arrival significant for tachycardia.
On exam patient is resting comfortably, no acute distress or discomfort. EKG confirms A-fib with RVR. Patient however is relatively comfortable in appearance. Laboratory analysis obtained prior to my assessment, unremarkable. Will try diltiazem
for rate control and reassess for improvement.
01:40 -patient's heart rate has improved, still elevated. Will additionally give a dose of metoprolol and reassess.
02:30 -patient's heart rate is still elevated. For this reason we will proceed with cardioversion. Patient consented. Denies any missed doses of his anticoagulation.
03:00 -successful cardioversion with subsequent conversion to sinus rhythm. Patient remains hemodynamically stable. Plan for discharge with outpatient cardiology follow-up
*EKG
Interpreted by ED Provider?: Yes
EKG Intrepretation Date: 04/29/24
EKG Intrepretation Time: 00:57
Interpretation: abnormal
Heart Rate: 147
Rate: tachycardiac
Rhythm: a-fib
[place]: normal axis
QRS Pattern: normal QRS
Ischemia: non-specific ST changes
*Critical Care Note
Total Time (30-74mins, 75-104mins- exclusive of procedures): Not Applicable
ED Attending Note
-
Portions of this chart may have been created with voice recognition software.� Occasional wrong word or��sound alike� substitutions may have occurred due to the inherent limitations of voice recognition software.
Discharge Plan
Departure
Patient with high blood pressure during this ER visit?: No
Condition: Good
Discharge Problem:
Atrial fibrillation with rapid ventricular response
Instructions: Atrial Fibrillation (DC)
Prescriptions:
No Action
lisinopril 40 mg Tablet
40 mg PO DAILY
rosuvastatin [Crestor] 40 mg Tablet
40 mg PO DAILY
metoprolol succinate 100 mg Tablet Extended Release 24 Hr
100 mg PO DAILY Qty: 30 0RF
propranolol 20 mg Tablet
20 mg PO Q6 PRN (Reason: AFib with RVR) Qty: 15 0RF
Eliquis 5 mg Tablet
5 mg PO BID Qty: 60 0RF
Referrals:
Pardeep Arellano DO [Family Provider] -
Activity Restrictions/Additional Instructions:
You were seen in the emergency department for atrial fibrillation
You were cardioverted with subsequent normalization of your heart rate.
Please follow-up closely with your primary care physician as well as her mixer wet pour.
Return to the emergency department for any worsening of your symptoms, or any development of chest pain, difficulty breathing, abdominal pain with persistent vomiting and inability to tolerate food or liquid by mouth (concern for dehydration),
weakness, headache or confusion, fever greater than 100.4, or any additional symptoms that are concerning to you.
Thank you for choosing [facility].
Interventions
Interventions:
*General Assessment Last Done: 04/29/24 00:32
ED- Fall Risk Assessment Last Done: 04/29/24 01:43
ED- Cardiac Assessment Last Done: 04/29/24 01:43
ED- Pulmonary Assessment Last Done: 04/29/24 01:43
Discharge Date and Time
Print Language: BERMUDIAN
[2024-04-29] MEDS: LOPRESSOR 5 MG IV (01:40)
== END 2024-04-29 04:51 | disposition home or self-care (01) ==
LOC: EMR 23:14
PROVIDERS: EMERGENCY PHYSICIAN Student in an Organized Health Care Education/Training Program; FAMILY PHYSICIAN Family Medicine
DX: I48.91 Unspecified atrial fibrillation (principal); Z79.01 Long term (current) use of anticoagulants; E78.00 Pure hypercholesterolemia, unspecified; Z90.49 Acquired absence of other specified parts of digestive tract
CPT/HCPCS: 99283; 92960; 96374; 96375; 96361; 80053; 84484; 85025; 93005

== ENCOUNTER 2024-12-01 07:45 | Emergency (ER) | payer MEDICARE, SELFPAY ==
[2024-12-01] VITALS (12 sets, daily range): BP systolic 99–142; BP diastolic 64–88
--- NOTE | 2024-12-01 09:18 | ED.GENMED ---
History of Present Illness
<Sheron Pacheco DO, Resident - Last Filed: 12/01/24 13:10>
General
Chief Complaint: Heart Rate Problem
Source: patient and significant other
Time Seen by Provider: 12/01/24 08:58
History of Present Illness
History of Present Illness:
Patient is a 69-year-old male past medical history of A-fib on Eliquis presenting with an episode of A-fib. Patient was first diagnosed with A-fib in January 2024, of which he converted into a sinus rhythm on his own. Patient has been on Eliquis 5
mg and metoprolol succinate 100 mg since. Patient had a second episode of A-fib in April 2024 and had to be cardioverted. Patient now presents with his third episode of A-fib. Patient first noticed it last night after walking his dogs, trying
to fall asleep. Patient put on his watch which confirmed that he was in A-fib. Patient took 4 propafenone. Patient has not eaten since 6 PM. Patient endorses slight shortness of breath and palpitations but is otherwise resting comfortably in no
distress.
Past History
<Sheron Pacheco DO, Resident - Last Filed: 12/01/24 13:10>
Past History
ED Past Medical History: Hypercholesterolemia
ED Past Surgical History: Cholecystectomy
Patient has exhibited threatening behavior?: No
PSI?: No
Social History
Personal:
Living: with family
Employment: Employed
Review of Systems
<Sheron Pacheco DO, Resident - Last Filed: 12/01/24 13:10>
Review of Systems
Allergies reviewed?: Yes
All Other Systems: ROS reviewed and negative except as documented in HPI and ROS
Constitutional: Reports no symptoms
EENT: Reports no symptoms
Respiratory: Reports other (Slight shortness of breath)
Cardiac: Reports palpitations
ABD/GI: Reports no symptoms
: Reports no symptoms
Musculoskeletal: Reports no symptoms
Skin: Reports no symptoms
Neurological: Reports no symptoms
Endocrine: Reports no symptoms
Hematologic/Lymphatic: Reports no symptoms
Psychiatric: Reports no symptoms
Phy Exam
<Sheron Pacheco DO, Resident - Last Filed: 12/01/24 13:10>
General Physical Exam
General Presentation: well appearing and no apparent distress
General age: appears stated age
General Skin: warm and dry
General Habitus: normal
General Mental: alert
Cardiovascular Exam
Cardiovascular Exam: tachycardia and other (Irregular rhythm)
Heart Sounds: normal
Pulmonary Exam
Pulmonary Exam: lungs clear and no respiratory distress
Gastrointestinal Exam
Gastrointestinal Exam: normal bowel sounds, non tender, soft and non distended
Course
<Sheron Pacheco DO, Resident - Last Filed: 12/01/24 13:10>
Orders/Labs/Results
Orders:
Orders
12/01/24 07:57
Electrocardiogram (*1) Urgent
Reason for Study: Atrial Fibrillation
EKG- Treatment ONCE
12/01/24 09:18
Metoprolol [Lopressor] 5 mg IV NOW STA
12/01/24 09:44
Complete Blood Count/With Diff Urgent
Comprehensive Metabolic Panel Urgent
12/01/24 10:37
Propofol [Diprivan] 20 ml .ROUTE .STK-MED
12/01/24 11:05
EKG [Electrocardiogram (*1)] Urgent
Reason for Study: Chest Pain
12/01/24 11:06
EKG- Treatment ONCE
Abnormal Lab Results
12/01/24
09:44
Absolute Monos (auto) 1.0 H 10^3/uL
(0.1-0.6)
Lymphocytes % 19.7 L %
(20.5-51.1)
Monocytes % 11.7 H %
(1.7-9.3)
Chloride 113 H mmol/L
(98-107)
Glucose 106 H mg/dl
(70-99)
12/01/24 09:44
12/01/24 09:44
Vital Signs
Initial and Last Documented VS:
Initial Vital Signs
Temp Pulse Resp BP Pulse Ox
97.5 F 61 20 142/81 98
12/01/24 07:53 12/01/24 07:53 12/01/24 07:53 12/01/24 07:53 12/01/24 07:53
Last Documented Vital Signs
Temp Pulse Resp BP Pulse Ox
98.1 F 64 18 105/64 98
12/01/24 12:03 12/01/24 12:03 12/01/24 12:03 12/01/24 12:03 12/01/24 12:03
<Eli Cote, DO - Last Filed: 12/01/24 14:00>
Orders/Labs/Results
Orders:
Orders
12/01/24 07:57
Electrocardiogram (*1) Urgent
Reason for Study: Atrial Fibrillation
EKG- Treatment ONCE
12/01/24 09:18
Metoprolol [Lopressor] 5 mg IV NOW STA
12/01/24 09:44
Complete Blood Count/With Diff Urgent
Comprehensive Metabolic Panel Urgent
12/01/24 10:37
Propofol [Diprivan] 20 ml .ROUTE .STK-MED
12/01/24 11:05
EKG [Electrocardiogram (*1)] Urgent
Reason for Study: Chest Pain
12/01/24 11:06
EKG- Treatment ONCE
Abnormal Lab Results
12/01/24
09:44
Absolute Monos (auto) 1.0 H 10^3/uL
(0.1-0.6)
Lymphocytes % 19.7 L %
(20.5-51.1)
Monocytes % 11.7 H %
(1.7-9.3)
Chloride 113 H mmol/L
(98-107)
Glucose 106 H mg/dl
(70-99)
12/01/24 09:44
12/01/24 09:44
Vital Signs
Initial and Last Documented VS:
Initial Vital Signs
Temp Pulse Resp BP Pulse Ox
97.5 F 61 20 142/81 98
12/01/24 07:53 12/01/24 07:53 12/01/24 07:53 12/01/24 07:53 12/01/24 07:53
Last Documented Vital Signs
Temp Pulse Resp BP Pulse Ox
98.1 F 64 18 105/64 98
12/01/24 12:03 12/01/24 12:03 12/01/24 12:03 12/01/24 12:03 12/01/24 12:03
Procedures
<Eli Cote DO - Last Filed: 12/01/24 14:00>
Cardioversion
Indication:: Afib
Performed by:: Eli Cote DO
Synchronized?: Yes
Energy Used: 200 joules
Number of attempts: 1
Successful?: Yes
Complications: none
ASA Risk Score: Class II
Any reaction or bad outcome to prior sedation/anesthesia?: No history of a reaction
Sedation level to be attained: moderate
Chart and allergies reviewed: Yes
Patient reassessed prior to sedation: Yes
Time out completed at (validating right patient & procedure): 11:02
History of difficult intubation: No
Airway free of obstruction: Yes
Patient has a gag reflex: Yes
Patient is able to open mouth: Yes
Patient has no dentures: Yes
Patient has no loose teeth: Yes
Medication administered by Provider during Moderate Sedation: IV Propofol (mg)
Total dose administered: 70
Time drug administered: 11:03
Start Time: 11:03
Stop Time: 11:18
<Sheron Pacheco DO, Resident - Last Filed: 12/01/24 13:10>
MDM/Problems Addressed
Differential Diagnosis Includes:
Atrial fibrillation w RVR
MDM/Problems Addressed:
Gave patient metoprolol 5 mg with no response and heart rate. Patient signed consent for cardioversion. Cardioverted at 11:03am. Repeat EKG is NSR. Patient ready for discharge home. Will advise follow-up with outpatient cardiology.
<Sheron Pacheco DO, Resident - Last Filed: 12/01/24 13:10>
*Pulse Oximetry
SaO2: 97
Oxygen Mode of Delivery: Room air
Patient hypoxic: no
*Critical Care Note
Total Time (30-74mins, 75-104mins- exclusive of procedures): Not Applicable
<Eli Cote DO - Last Filed: 12/01/24 14:00>
*EKG
Interpreted by ED Provider?: Yes
EKG Intrepretation Date: 12/01/24
EKG Intrepretation Time: 10:06
Interpretation: abnormal
Comparison EKG: changes noted
Heart Rate: 156
Rate: tachycardiac
Rhythm: a-fib
[place]: normal axis
QRS Pattern: normal QRS
Ischemia: no ischemia
*Critical Care Note
Total Time (30-74mins, 75-104mins- exclusive of procedures): 36
comment:
The high probability of a clinically significant, sudden or life threatening deterioration of the cardiovascular system(s) required my full and direct attention, intervention and personal management. The aggregate critical care time was 36 minutes.
This time is in addition to time spent performing reported procedures but includes the following:
[x] Data Review and interpretation
[x] Patient assessment and monitoring of vital signs
[x] Documentation
[x] Medication orders and management
ED Attending Note
<Sheron Pacheco DO, Resident - Last Filed: 12/01/24 13:10>
-
Portions of this chart may have been created with voice recognition software.� Occasional wrong word or��sound alike� substitutions may have occurred due to the inherent limitations of voice recognition software.
<Eli Cote DO - Last Filed: 12/01/24 14:00>
ED Attending Note
Patient seen and examined by attending physician: Yes
I performed the substantive portion of visit, reviewed & personally made and approve the management plan that is documented in note by myself or LIBRADO.: Yes
I performed a history and physical exam of patient and discussed management with resident, I reviewed resident's note and agree with documented findings and plan of care.: Yes
ED Attending Note:
69-year-old male with history of A-fib on Eliquis and metoprolol presenting to the emergency department for concern that he is in atrial fibrillation. Notes that last night he was walking his dog and came back into the house. He sat down and felt
that he was in A-fib, confirmed by his phone. Notes the last time he was in atrial fibrillation was in April at which time he was cardioverted. Reports compliance with his metoprolol and his Eliquis. Denies chest pain. Notes some mild
shortness of breath. Denies fever or recent illness. Patient follows with Dr. Trejo cardiology. Denies additional acute complaints.
Vital signs on arrival significant for tachycardia. On exam, patient is resting comfortably, no acute distress. Patient is in atrial fibrillation, confirmed by exam and EKG. Otherwise no concerning features. No increased work of breathing,
normal pulmonary exam. Given that patient is on metoprolol, will try IV metoprolol. If unsuccessful, likely plan for synchronized cardioversion.
Discharge Plan
Departure
Patient Disposition: Home (Routine Discharge)
Date of Disposition: 12/01/24
Time of Disposition: 11:33
Patient with high blood pressure during this ER visit?: Yes
Discharge Problem:
Encounter for cardioversion procedure, Atrial fibrillation
Instructions: Atrial fibrillation - Discharge instructions, MODERATE SEDATION ADULT, BLOOD PRESSURE
Prescriptions:
No Action
lisinopril 40 mg Tablet
40 mg PO DAILY
rosuvastatin [Crestor] 40 mg Tablet
40 mg PO DAILY
metoprolol succinate 100 mg Tablet Extended Release 24 Hr
100 mg PO DAILY Qty: 30 0RF
propranolol 20 mg Tablet
20 mg PO Q6 PRN (Reason: AFib with RVR) Qty: 15 0RF
Eliquis 5 mg Tablet
5 mg PO BID Qty: 60 0RF
Referrals:
Arnol Negron CRNP [Family Provider]
Activity Restrictions/Additional Instructions:
Please follow-up outpatient with cardiology.
Interventions
Interventions:
*Risk Screen - Suicide Last Done: 12/01/24 07:55
*General Assessment Last Done: 12/01/24 07:55
*Neglect/Abuse Screening Last Done: 12/01/24 07:55
*ED- Fall Risk Assessment Last Done: 12/01/24 12:12
*ED COVID-19 Vaccine History Last Done: 12/01/24 12:12
*Nursing Disposition Last Done: 12/01/24 12:12
ED- Cardiac Assessment Last Done: 12/01/24 11:11
ED- Pulmonary Assessment Last Done: 12/01/24 12:12
Discharge Date and Time
Discharge Date/Time: 12/01/24 12:13
Print Language: IRISH
[2024-12-01] MEDS: LOPRESSOR 5 MG IV (09:41)
[2024-12-01 10:05] LABS: Hematocrit 45.3 % (39.0-52.0); Hemoglobin 15.2 g/dL (13.0-18.0); Mean Corp Hgb Conc. 33.6 g/dL (33.0-37.0); Mean Corpuscular Volume 91.3 fL (80.0-94.0); Nucleated Red Blood Cells % 0 % (-); Platelet Count 224 10^3/uL (130-400); Red Cell Dist. Width 13.6 % (11.5-14.5)
[2024-12-01 10:36] LABS: ALT (SGPT) 15 U/L (0-50); AST (SGOT) 22 U/L (17-59); Albumin 3.9 g/dl (3.5-5.0); Alkaline Phosphatase 61 U/L (38-126); Blood Urea Nitrogen 14 mg/dl (9-20); Calcium 9.2 mg/dl (8.4-10.2); Carbon Dioxide 23 mmol/L (22-30); Chloride 113 mmol/L (98-107); Glucose 106 mg/dl (70-99); Potassium 4.8 mmol/L (3.5-5.1); Sodium 142 mmol/L (135-145); Total Protein 6.6 g/dl (6.3-8.2); eGFR > 60.00
== END 2024-12-01 12:13 | disposition home or self-care (01) ==
LOC: EMR 07:45
PROVIDERS: EMERGENCY PHYSICIAN Student in an Organized Health Care Education/Training Program
DX: I48.91 Unspecified atrial fibrillation (principal); E78.00 Pure hypercholesterolemia, unspecified; Z79.01 Long term (current) use of anticoagulants; Z90.49 Acquired absence of other specified parts of digestive tract
CPT/HCPCS: 92960; 99152; 99291; 96374; 80053; 85025; 93005

== ENCOUNTER → 2025-03-30 07:47 | Outpatient (REF) | payer MEDICARE, SELFPAY ==
[2025-03-30 08:18] LABS: Hematocrit 44.9 % (39.0-52.0); Hemoglobin 15.8 g/dL (13.0-18.0); Mean Corp Hgb Conc. 35.2 g/dL (33.0-37.0); Mean Corpuscular Volume 86.7 fL (80.0-94.0); Nucleated Red Blood Cells % 0 % (-); Platelet Count 218 10^3/uL (130-400); Red Cell Dist. Width 12.9 % (11.5-14.5)
[2025-03-30 08:43] LABS: ALT (SGPT) 20 U/L (0-50); AST (SGOT) 22 U/L (17-59); Albumin 4.2 g/dl (3.5-5.0); Alkaline Phosphatase 81 U/L (38-126); Blood Urea Nitrogen 19 mg/dl (9-20); Calcium 9.6 mg/dl (8.4-10.2); Carbon Dioxide 29 mmol/L (22-30); Chloride 104 mmol/L (98-107); Glucose 105 mg/dl (70-99); Potassium 3.9 mmol/L (3.5-5.1); Sodium 138 mmol/L (135-145); Total Protein 7.3 g/dl (6.3-8.2); eGFR > 60.00
== END ==
LOC: SDSPAT 07:47
PROVIDERS: ATTENDING PHYSICIAN Internal Medicine Cardiovascular Disease; OTHER PHYSICIAN Internal Medicine Cardiovascular Disease
DX: I48.0 Paroxysmal atrial fibrillation (principal)
CPT/HCPCS: 36415; 80053; 85025; 86850; 86900; 86901

== ENCOUNTER 2025-04-07 05:54 | Day surgery (SDC) | payer MEDICARE, SELFPAY ==
[2025-03-30 07:56] VITALS: BMI 30.2
[2025-04-07] VITALS (14 sets, daily range): BP systolic 123–153; BP diastolic 76–94
[2025-04-07 08:54] LABS: ACT-LR - POC 356 Seconds (116-155)
[2025-04-07 09:13] LABS: ACT-LR - POC 319 Seconds (116-155)
[2025-04-07 09:34] LABS: ACT-LR - POC 314 Seconds (116-155)
--- NOTE | 2025-04-07 10:21 | ITS.CL.ABL ---
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
Ablation
Procedure Report:
AFIB ablation:
Mr. Holland is a very pleasant 69 yr old gentleman with symptomatic paroxysmal AF, is recommended for atrial fibrillation ablation.
Date of the Procedure:
04/07/2025
Indications:
Paroxysmal atrial fibrillation
Pre-Operative Diagnosis:
Paroxysmal atrial fibrillation
Post-Operative Diagnosis:
Paroxysmal atrial fibrillation
Procedure Performed:
Atrial fibrillation ablation with Pulsed-Field approach for pulmonary vein isolation
Performing Physician:
Cecilia Graham MD
Assistants:
EP staff
Anesthesia:
See anesthesia records
Detailed Description of the Procedure:
Written informed consent was obtained from the patient after a full explanation of the risks and benefits of the procedure including the risks of sedation and anesthesia.
The patient was brought to the electrophysiology laboratory in stable condition in fasting state. Continuous electrocardiographic and hemodynamic monitoring was initiated.
The initial rhythm was sinus.
The procedure site was meticulously prepared with surgical scrub and allowed to dry with no pooling. Sterile draping was applied to cover the procedure site. The image intensifier was draped with sterile bag and positioned over the patient. After
infusion of local anesthetic, vascular access was obtained under ultrasound guidance and sheaths were placed over guide wire as detailed below.
Sheath and Catheter Placement:
The following catheters / sheaths were placed
Sheaths:
17Fr steerable sheath (Faradrive�, [employer]) in right femoral
9Fr in right femoral vein
Catheters:
Farawave� PFA catheter
ICE catheter � AcuNav - at locations of RA, SVC, and RV.
Intracardiac ECHO:
An 8-Dutch AcuNav intracardiac ECHO (ICE) probe was advanced through the 9-Dutch sheath in the right femoral vein into the right atrium under fluoroscopic and ICE ultrasound image guidance and a baseline ECHO study was performed. The left atrial
size was normal. There was moderate tricuspid regurgitation. The aortic valve was grossly normal. There was normal left ventricular systolic functions. There is trace pericardial effusion. All the four veins were identified and has flow identified.
There was good flow noted in the ARTUR.
During the procedure, ICE was used for monitoring of complications, guidance of trans-septal puncture, monitor the catheter position and tracking ablation lesions. No change in the pericardial space noted throughout the procedure.
Trans-septal Puncture:
Heparin was initiated and infused to maintain appropriate ACT. A pigtail guidewire was advanced through the 8-Dutch sheath in the right femoral vein into the superior vena cava under fluoroscopic and ICE guidance. The sheath was exchanged for a
Faradrive sheath which was advanced into the superior vena cava. A transseptal RF pigtail via Faradrive connect system was utilized to perform the trans-septal puncture. The apparatus was withdrawn until it was in contact with the fossa ovalis. The
position was adjusted based on fluoroscopy and ultrasound images from ICE. Under fluoroscopic, hemodynamic and ICE ultrasound guidance, left atrium was cannulated by applying RF energy. Once atrial septum was cannulated, the pigtail wire was
advanced through the needle into the left atrium. The guide wire was advanced into the left superior pulmonary vein. Both the sheath and the dilator was advanced into the left atrium. The dilator with the needle was withdrawn. Blood was aspirated
from the Faradrive sheath and arterial blood confirmed. The sheath was flushed. Saline injection noted into the left atrium on ICE. The mapping catheter was advanced in the sheath into the left pulmonary vein. Left atrial pressure was measured.
3D Electroanatomic Mapping:
Using the Farawave catheter advanced through sheath into the left atrium, an electroanatomic map (EAM) of the left atrium was created using [email or web address] mapping system. The map was used for localization of catheter position and tacking of
ablation lesions.
The EAM of the left atrium showed 4 pulmonary veins with all 4 veins electrically connected to the body the LA. It showed normal voltage on the posterior and anterior wall of the LA. The LA was mildly dilated in size.
Following the EAM, preparation were made for ablation.
Ablation:
Ablation # 1: Pulmonary vein Isolation:
Glycopyrrolate 0.2 mg was given prior to the placement of ablation.
Using Farawave pulsed wave ablation system, pulmonary vein isolation was achieved. First the ablation catheter was placed in the LSPV and ostial ablation lesions were performed in a counter clock [place] approach all around the PV ostium
circumferentially using the Farapulse catheter in �[place]� formation. Then the catheter was placed on the antral location (in Disc/flower formation) and multiple ablation lesions were placed circumferentially on the antrum of the vein.
In the similar fashion, the LIPV were isolated.
Then the catheter was moved to right sided veins. The ostial and antral ablations were placed as noted above.
EPS and Confirmation of the PVI and bidirectional block:
Following achievement of entrance block at the pulmonary veins, pacing from the farawave catheter in each of the four veins at 10 milliamps for 2 milliseconds showed entrance and exit block. All PVI were rechecked at the end of the case and remained
isolated. Entrance and exit block were demonstrated in all veins.
Post ablation Electroanatomic mapping:
Once ablation was completed, the EAM of the LA was done again in sinus rhythm with excellent demarcation of LA myocardium and isolated antral tissue. There was no significant scarring noted in the LA.
The ARTUR had healthy signals and was not isolated.
Procedure End
ICE study was done again that showed no epicardial accumulation. No complications noted.
Following the completion of the EP study, catheters were removed. Protamine 40 mg was given at the end of the procedure and ACT was checked repeatedly. The sheaths were removed and hemostasis achieved with �Figure of 8� and manual compression after
acceptable ACT is achieved.
Total Number PFA ablation lesions
56
Left atrial Pressure:
Pre-ablation: Mean LA pressure was 6mmHg
Post-ablation: Mean LA pressure was 8mmHg
Post-ablation: Mean RA pressure was 4mmHg
Estimated Blood loss:
<10 cc
Specimens Removed:
None.
Implants / Devices:
None
Urine output:
None
Packs / Drains/ Tubes:
None
Instrument / Sponge Count Correct:
Yes
Complications of the Procedure:
None
Condition of Patient at Time of Transfer:
Hemodynamically stable with no neurological or vascular compromise.
Summary:
Successful atrial fibrillation ablation with Pulsed Field approach for pulmonary vein isolation.
Figures from the Procedure:
Figure 1: The electroanatomic mapping (EAM) of the left atrium with bipolar voltage (purple indicates normal electrical activity with red as no myocardial muscle electric activity indicating a line of block or scar.
[2025-04-07] MEDS: ANESTHETIC LOZENGE 1 LOZENGE PO (10:50)
--- NOTE | 2025-04-07 14:56 | W.PN.UPDATE ---
Update Note
Progress Note Update
69 yo WM s/p PVI (same day). He denies cp, sob, mariann diet, voiding, sore throat, EKG SR, R fem site c/d/i. He will resume Eliquis tonight and continue metoprolol. Activity restrictions reviewed. He will f/u [employer] in 2 weeks. He is for d/c home after 3pm.
== END 2025-04-07 14:47 | disposition home or self-care (01) ==
LOC: CATH 05:54
PROVIDERS: ATTENDING PHYSICIAN Internal Medicine Cardiovascular Disease; OTHER PHYSICIAN Internal Medicine Cardiovascular Disease
DX: I48.0 Paroxysmal atrial fibrillation (principal); I07.1 Rheumatic tricuspid insufficiency; I25.10 Atherosclerotic heart disease of native coronary artery without angina pectoris; E78.2 Mixed hyperlipidemia; Z79.01 Long term (current) use of anticoagulants; Z79.899 Other long term (current) drug therapy
CPT/HCPCS: C1894; C1769; C1892; C1759; 85347; 86900; 86901; 93005; 93656